=== PATIENT | female | born 1985 | race American Indian/Alaskan Native ===

== ENCOUNTER 2017-09-15 13:42 | Emergency (ER) | payer MEDICAID ==
[2017-09-15 14:17] VITALS: TEMP 98.7
[2017-09-15 15:33] VITALS: O2SAT 97
[2017-09-15] MEDS ORDERED: Fluorescein 1 mg Ophthalmic Strip OS ONE (15:50)
[2017-09-15] MEDS ORDERED: Tetracaine 0.5% Ophth 2 ML BOTTLE OS ONE (15:51)
[2017-09-15] MEDS ORDERED: Tetracaine 0.5% Ophth (OR ONLY) ONE (15:55)
[2017-09-15] MEDS ORDERED: Fluorescein 1 mg Ophthalmic Strip ONE (15:55)
--- NOTE | 2017-09-15 16:06 | C.PDOC ---
History Of Present Illness Pt c/o left eye pain. Pt was prescribed antibiotic eye drops by her PMD, but did not start it yet. Time Seen by Provider: 09/15/17 14:26 Chief Complaint (Nursing): Eye Problem History Per: Patient Onset/Duration Of Symptoms: Days (1) Current Symptoms Are (Timing): Still Present Injury To Eye?: No Severity: Moderate Quality: "Pain" Wears Contact Lens?: No Associated Symptoms: Pain, Discharge From Eye (watery) Additional History Per: Prior Records Past Medical History Reviewed: Historical Data, Nursing Documentation, Vital Signs Vital Signs: Last Vital Signs Temp 98.7 F 09/15/17 15:32 Pulse 82 09/15/17 15:32 Resp 18 09/15/17 15:32 BP 119/75 09/15/17 15:32 Pulse Ox 97 09/15/17 15:32 - Medical History PMH: No Chronic Diseases Family History: States: Unknown Family Hx - Social History Hx Alcohol Use: No Hx Substance Use: No - Immunization History Hx Tetanus Toxoid Vaccination: No Hx Influenza Vaccination: No Hx Pneumococcal Vaccination: No Review Of Systems Except As Marked, All Systems Reviewed And Found Negative. Constitutional: Negative for: Fever, Weakness Eyes: Positive for: Pain (left eye), Vision Change (mild) Cardiovascular: Negative for: Chest Pain Gastrointestinal: Negative for: Vomiting, Abdominal Pain Musculoskeletal: Negative for: Neck Pain Skin: Negative for: Rash Neurological: Negative for: Weakness, Numbness, Seizures, Altered Mental Status Physical Exam - Physical Exam Appears: Non-toxic, No Acute Distress Skin: Normal Color, Warm, Dry, No Rash Head: Atraumatic, Normacephalic Eye(s): bilateral: PERRL, EOMI, left: Other (Flourecine uptake on cornea) Neck: Normal ROM, Supple Lymphatic: No Adenopathy Extremity: Normal ROM Neurological/Psych: Oriented x3, Normal Speech, Normal Cognition, Normal Cranial Nerves, Normal Motor, Normal Sensation ED Course And Treatment O2 Sat by Pulse Oximetry: 97 Pulse Ox Interpretation: Normal Progress Note: Pain resolved after tetracaine drop. Reassessment Condition: Improved Disposition Counseled Patient/Family Regarding: Studies Performed, Diagnosis, Need For Followup - Disposition Referrals: Pete Trent [Staff Provider] - Disposition: HOME/ ROUTINE Disposition Time: 16:07 Condition: STABLE Additional Instructions: Use the antibiotic eye drops prescribed to you by your primary doctor. Follow up with an [facility] (eye doctor) within 1-2 days. Return to the ER if you develop worsening of symptoms or if you have any other concerns. Instructions: Corneal Abrasion (ED) Forms: [facility] [employer] ([place]) - Clinical Impression Clinical Impression: Corneal abrasion, left
[2017-09-15 16:53] VITALS: BP 128/72; PULSE 88; RESP 20
== END 2017-09-15 16:30 | disposition home or self-care (01) ==
LOC: C.ER 13:42
DX: S05.02XA Injury of conjunctiva and corneal abrasion without foreign body, left eye, initial encounter (principal); X58.XXXA Exposure to other specified factors, initial encounter; Y92.9 Unspecified place or not applicable

== ENCOUNTER 2018-12-23 07:47 | Outpatient (CLI) | payer MEDICAID | END 2018-12-23 07:48 | disposition home or self-care (01) | LOC: C.USIC 07:48 | DX: R10.84 Generalized abdominal pain (principal) ==